=== PATIENT | male | born 1965 | race Hispanic/Latino ===

== ENCOUNTER 2017-02-05 07:01 | Day surgery (SDC) | payer BC ==
[2017-02-05] MEDS ORDERED: Lactated Ringer's 500 ML IV SCH (09:00)
[2017-02-05] MEDS ORDERED: Propofol 10 mg/ml Inj (20 ML) ONE (09:19)
[2017-02-05] MEDS ORDERED: Lactated Ringer's 1,000 ML IV ONE (09:53)
[2017-02-05 11:46] VITALS: TEMP 97.1
[2017-02-05 11:49] VITALS: O2SAT 97
[2017-02-05 11:53] VITALS: BP 118/71; PULSE 60; RESP 19
== END 2017-02-05 11:12 | disposition home or self-care (01) ==
LOC: C.ENDO 07:01
PROVIDERS: ATTEND Internal Medicine Gastroenterology
DX: Z12.11 Encounter for screening for malignant neoplasm of colon (principal); K57.30 Diverticulosis of large intestine without perforation or abscess without bleeding; K64.1 Second degree hemorrhoids
CPT/HCPCS: 45378; J2704; J7120